=== PATIENT | female | born 1965 | race Caucasian/White ===

== ENCOUNTER 2017-01-13 17:04 | Emergency (ER) | payer MEDICARE | END 2017-01-13 20:16 | disposition home or self-care (01) | LOC: FER 17:04 | DX: H57.8 Other specified disorders of eye and adnexa (principal); H54.41 Blindness, right eye, normal vision left eye; I10 Essential (primary) hypertension; F17.210 Nicotine dependence, cigarettes, uncomplicated; Z88.0 Allergy status to penicillin; Z79.899 Other long term (current) drug therapy | CPT/HCPCS: 99283 ==